=== PATIENT | male | born 1955 | race Caucasian/White ===

== ENCOUNTER → 2017-07-15 | Outpatient (CLI) | payer OTHER ==
--- NOTE | 2017-07-15 13:19 | PCVCIMAG ---
APPROVED REPORT Exam: Stress Echocardiogram Indication: CAD, CABG, Stress Nurse: Kelly Mittal RN Status: routine Ht: 5 ft 0 in HR: 83 bpm BP: 118/80 mmHg Rhythm: NSR Procedure The patient underwent an Exercise Stress Test using the Roge Protocol. Blood pressure, heart rate, and EKG were monitored. An Echocardiogram was performed by urinalysis technician in four stages in quad fashion. At peak stress, four selected images were obtained and placed side by side with resting images for comparison. Stress Test Details Stress Test: Exercise stress testing was performed using a Roge protocol. HR Resting HR: 83 bpmMax Heart Rate (APMHR): 160 bpm Max HR Achieved: 157 bpmTarget HR (85% APMHR): 136 bpm % of APMHR: 98 HR response to stress: Normal HR response to stress BP Resting BP: 118/80 mmHg Max BP: 200/80 mmHg ECG Resting ECG: Sinus Rhythm Stress ECG: Sinus Rhythm Arrhythmia: PVC's. Clinical Reason for Termination: Maximal effort Exercise duration: 10 min 57 sec Highest Stage Achieved: Stage 4: 4.2 mph at 16% grade. Exercise capacity: 13.40 METs Overall Exercise Capacity for Age: Good Pre-Stress Echo The resting Echocardiogram showed abnormal left ventricular contractility with an estimated Ejection Fraction of about 40-45%. Anterior, Apical hypokinesis. Septal hypokinesis. Post-Stress Echo The stress Echocardiogram showed normal left ventricular contractility with an estimated Ejection Fraction of about 50-55%. No new regional wall motion abnormalities. Conclusion Clinical Response: Non-ischemic Exercise Capacity: Superior Stress ECG Response: Non-ischemic Stress Echo Images: Non-ischemic Other Information Study Quality: Adequate
== END | disposition home or self-care (01) ==
LOC: PCVCIMAG 10:01
PROVIDERS: ATTEND Internal Medicine Cardiovascular Disease
DX: I25.10 Atherosclerotic heart disease of native coronary artery without angina pectoris (principal); I10 Essential (primary) hypertension; I25.5 Ischemic cardiomyopathy; R94.31 Abnormal electrocardiogram [ECG] [EKG]; I49.3 Ventricular premature depolarization; E78.00 Pure hypercholesterolemia, unspecified; Z95.1 Presence of aortocoronary bypass graft
CPT/HCPCS: 80061; 93325; 93351

== ENCOUNTER → 2017-11-02 | Outpatient (CLI) | payer OTHER ==
--- NOTE | 2017-11-02 09:27 | PCVCIMAG ---
APPROVED REPORT Laterality: Bilateral Patient Location: Out-Patient Indications Stenosis Doppler Spectral Velocity Analysis PSV / EDVPSV / EDV ECA (R) 57 / 9 cm/sECA (L) 90 / 13 cm/s dICA (R) 57 / 22 cm/sdICA (L) 66 / 23 cm/s Josie (R) 72 / 26 cm/smICA (L) 57 / 22 cm/s pICA (R) 62 / 17 cm/spICA (L) 52 / 14 cm/s Bulb (R) 56 / 14 cm/sBulb (L) 61 / 17 cm/s dCCA (R) 66 / 17 cm/sdCCA (L) 86 / 18 cm/s mCCA (R) 86 / 19 cm/smCCA (L) 100 / 26 cm/s Vert (R) 34 / 12 cm/sVert (L) 33 / 12 cm/s ICA/CCA 1.09 ICA/CCA 0.77 Findings The right carotid bulb has mild-moderate plaque. The right proximal internal carotid artery shows <40% stenosis. The right common carotid artery shows no significant stenosis. The right external carotid artery shows no significant stenosis. The left carotid bulb has mild-moderate plaque. The left proximal internal carotid artery shows <40% stenosis. The left common carotid artery shows no significant stenosis. The left external carotid artery shows no significant stenosis. Conclusion 1. Right internal carotid artery stenosis (<40%) 2. Left internal carotid artery stenosis (<40%) 3. Antegrade vertebral flow
== END | disposition home or self-care (01) ==
LOC: PCVCIMAG 08:03
PROVIDERS: ATTEND Internal Medicine Cardiovascular Disease
DX: I65.23 Occlusion and stenosis of bilateral carotid arteries (principal); I10 Essential (primary) hypertension; Z95.1 Presence of aortocoronary bypass graft
CPT/HCPCS: 80061; 93880

== ENCOUNTER → 2018-07-28 | Outpatient (CLI) | payer OTHER ==
--- NOTE | 2018-07-28 12:37 | PCVCIMAG ---
APPROVED REPORT Study performed: 07/28/2018 11:07:32 Exam: Stress Echocardiogram Indication: CAD s/p CABG, Hyperlipidemia, Hypertension Patient Location: Echo lab Stress Nurse: Kelly Mittal RN Status: routine Ht: 6 ft 0 in HR: 75 bpm BP: 110/70 mmHg Rhythm: NSR Medical History Medical History: CAD s/p CABG, Myocardial infarction, Ischemic cardiomyopathy Exercise History: Physically active Procedure The patient underwent an Exercise Stress Test using the Roge Protocol. Blood pressure, heart rate, and EKG were monitored. An Echocardiogram was performed by natural gas technician in four stages in quad fashion. At peak stress, four selected images were obtained and placed side by side with resting images for comparison. Stress Test Details Stress Test: Exercise stress testing was performed using a Roge protocol. HR Resting HR: 75 bpmMax Heart Rate (APMHR): 159 bpm Max HR Achieved: 150 bpmTarget HR (85% APMHR): 135 bpm % of APMHR: 94 HR response to stress: Normal HR response to stress BP Resting BP: 110/70 mmHg Max BP: 186/ mmHg ECG Resting ECG: Sinus Rhythm Stress ECG: Sinus Rhythm Recovery ECG: Sinus Rhythm Clinical Reason for Termination: Maximal effort Exercise duration: 10 min sec Highest Stage Achieved: Stage 4: 4.2 mph at 16% grade. Exercise capacity: 13.40 METs Overall Exercise Capacity for Age: Good Pre-Stress Echo The resting Echocardiogram showed abnormal left ventricular contractility with an estimated Ejection Fraction of about 40%. Anterior apical akinesis. Post-Stress Echo The stress Echocardiogram showed abnormal left ventricular contractility with an estimated Ejection Fraction of about 45%. Anterior apical akinesis. No new regional abnormalities. Conclusion Clinical Response: Non-ischemic Exercise Capacity: Average Stress ECG Response: Non-ischemic Stress Echo Images: Non-ischemic Other Information Study Quality: Adequate
== END | disposition home or self-care (01) ==
LOC: PCVCIMAG 10:55
PROVIDERS: ATTEND Internal Medicine Cardiovascular Disease
DX: I25.10 Atherosclerotic heart disease of native coronary artery without angina pectoris (principal); I25.5 Ischemic cardiomyopathy; R06.09 Other forms of dyspnea; I10 Essential (primary) hypertension; E78.5 Hyperlipidemia, unspecified
CPT/HCPCS: 93325; 93351

== ENCOUNTER → 2019-09-16 | Outpatient (CLI) | payer OTHER ==
[~2019-09-16] MED LIST: REGADENOSON 0.4 MG/5 ML DISP.SYRIN. IV ONE
--- NOTE | 2019-09-16 16:53 | PCVCIMAG ---
APPROVED REPORT Imaging Protocol: Rest Tc-99m/Stress Tc-99m 1 day Study performed: 09/16/2019 09:14:13 Indication: Chest pain, CAD, ICM Patient Location: Out-Patient Stress Nurse: Kelly Mittal RN AR Tech:Heather Jefferson [facility] Ht: 6 ft 0 in Wt: 223 lbs BSA: 2.23 m2 HR: 61 bpm BP: 143/80 mmHg BMI: 30.2 Rhythm: Normal Sinus Rhythm, Ant/Sept infarct Medical History Medical History: HTN, CAD, [place], Former smoker Medications: Aspirin, Bystolic, Atorvastatin, Quinipril Allergies: No known drug allergies Cardiac Risk Factors: Age Previous Cardiac Procedures: CABG Pretest Chest Pain Characteristics: No chest pain Exercise History: Physically active Meds Held (24 hrs): Bystolic Resting Data Rest SPECT myocardial perfusion imaging was performed in supine position 45 minutes following the intravenous injection of 10.4 mCi of Tc-99m Sestamibi. Time of rest injection: 0840 Date: 09/16/2019 Administration Route: IV Administration Site: Right Hand Pharmacologic Stress Pharmacologic stress test was performed by injecting Regadenoson 0.4 mg IV push over 10-15 seconds immediately followed by the intravenous injection of 33.6 mCi of Tc-99m Sestamibi. Time of stress injection: 1000 Date: 09/16/2019 Administration Route: IV Administration Site: Right Hand Gated Stress SPECT was performed 45 minutes after stress injection. The images were gated to evaluate regional wall motion and calculate left ventricular ejection fraction. Stress Test Details Stress Test: Pharmacologic stress was paired with low level exercise. Reason for pharmacologic stress test: physical limitation, abnormal images. HRMax Heart Rate (APMHR): 158 bpm Resting HR: 61 bpmTarget HR (85% APMHR): 134 bpm Max HR Achieved: 109 bpm % of APMHR: 68 Recovery HR: 73 bpm BP Resting BP: 143/80 mmHg Max BP: 159/85 mmHg Recovery BP: 162/81 mmHg ECG Resting ECG: Normal Sinus Rhythm, Ant/Sept infarct Stress ECG: Sinus Tachycardia Arrhythmia: None Recovery ECG: Sinus Rhythm Clinical Reason for Termination: Completed protocol Stress Symptoms: Nausea Exercise duration: 4 min 00 sec Exercise capacity: 1.6 METs Symptoms resolved with caffeine. Stress ECG Conclusion ECG: Non-ischemic Clinical: Non-ischemic Study Quality Study: Good Study Data Post stress, the left ventricular ejection was 53%.. SSS: 20 SRS: 17 SDS: 3 TID = 1.07. 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 Old complete infarct involving the mid/apical inferior wall of the left ventricle with mild maribel-infarct ischemia. 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 Old complete infarct involving the mid/apical inferior wall of the left ventricle with mild maribel-infarct ischemia. Post stress, the left ventricular ejection was 53%. No prior study available for comparison. Interpreted by: Shaun Retana MD Electronically Approved: 09/16/2019 12:45:39 <Conclusion> ECG: Non-ischemic Clinical: Non-ischemic
== END | disposition home or self-care (01) ==
LOC: PCVCIMAG 09:07
PROVIDERS: ATTEND Internal Medicine Cardiovascular Disease
DX: I25.810 Atherosclerosis of coronary artery bypass graft(s) without angina pectoris (principal); I25.5 Ischemic cardiomyopathy; I10 Essential (primary) hypertension; E78.00 Pure hypercholesterolemia, unspecified; Z95.1 Presence of aortocoronary bypass graft; Z82.49 Family history of ischemic heart disease and other diseases of the circulatory system; Z87.891 Personal history of nicotine dependence; Z72.89 Other problems related to lifestyle; Z79.82 Long term (current) use of aspirin; Z79.899 Other long term (current) drug therapy
CPT/HCPCS: 78452; 93017; A9500; J2785